=== PATIENT | male | born 1995 | race Caucasian/White ===

== ENCOUNTER → 2016-09-06 | Outpatient (CLI) | payer BC ==
--- NOTE | 2016-09-06 10:00 | REP ---
Clinical: Primary Hypertension. Technique: Quintana scale and color Doppler evaluation of the kidneys and renal vasculature using curved array transducer. Findings: The kidneys are essentially normal in contour size and echogenicity and reniform shape without hydronephrosis, nephrolithiasis, cystic or renal mass lesion. Right kidney measures 10.9 x 5.6 x 6.2 cm . Left kidney measures 13.3 x 5.1 x 5.6 cm . Bladder is incompletely distended and grossly normal by current evaluation. Color Doppler evaluation of the renal vasculature demonstrates normal arterial wave patterns, velocities, renal aortic ratios, resistive indices and the acceleration time. No sonographic evidence for renal arterial stenosis noted. Renal vein is patent. Right Kidney: Peak arterial velocity: 94.8 cm/sec . Renal aortic ratio: 0.55 . Resistive indices: 0.49 - 0.64 . Acceleration times: 0.047 - 0.069 . Left kidney: Peak arterial velocity: 86.9 cm/sec . Renal aortic ratio: 0.50 . Resistive indices: 0.63 - 0.65 . Acceleration times: 0.025 - 0.034 . Impression: Normal appearance of the bilateral kidneys. No sonographic evidence for renal arterial stenosis. Signed by Zain Wan MD 09/06/2016 09:51 A
== END ==
LOC: M RAD 08:55
PROVIDERS: ATTEND Physician Assistant
DX: R03.0 Elevated blood-pressure reading, without diagnosis of hypertension (principal)

== ENCOUNTER → 2018-02-06 | Outpatient (REF) | payer BC ==
[2018-02-06 19:33] LABS: CHLAMYDIA DNA AMPLIFICATION NEGATIVE (NEGATIVE); GC DNA AMPLIFICATION NEGATIVE (NEGATIVE)
== END ==
LOC: M LAB REF 16:44
DX: Z20.2 Contact with and (suspected) exposure to infections with a predominantly sexual mode of transmission (principal)
CPT/HCPCS: 87591

== ENCOUNTER → 2019-04-24 | Outpatient (REF) | payer BC ==
[2019-04-24 20:10] LABS: INFLUENZA A AMPLIFICATION NEGATIVE (NEGATIVE); INFLUENZA B AMPLIFICATION POSITIVE (NEGATIVE)
== END ==
LOC: M LAB REF 10:35
PROVIDERS: ATTEND Physician Assistant Medical
DX: J11.1 Influenza due to unidentified influenza virus with other respiratory manifestations (principal)